=== PATIENT | male | born 2000 | race Caucasian/White ===

== ENCOUNTER 2018-10-05 21:53 | Emergency (ER) | payer OTHER ==
[2018-10-05] MEDS ORDERED: ONDANSETRON 4 MG/2 ML VIAL ONE (22:09)
[2018-10-05] MEDS ORDERED: ONDANSETRON 4 MG/2 ML VIAL IVP ONE (22:13)
[2018-10-05] MEDS ORDERED: NS 1,000 ML IV ONE (22:14)
--- NOTE | 2018-10-05 22:15 | EDPHY ---
H & P Stated Complaint: VOMIT, COUGH, CP Time Seen by Provider: 10/05/18 22:02 HPI/ROS: Chief Complaint: Vomiting, dehydration, chest pain HPI: 18-year-old male states that he was out drinking last night. Had about 5- 6 beers. He has had URI symptoms for about the last week bringing up yellowish sputum. This morning he woke up feeling general malaise, nausea. He has vomited multiple times. He has been unable to keep any fluids down. He has had some body aches. After vomiting he did have some central chest pain which has since improved. No blood in his vomit. No dark tarry stools or blood in his stool. No fevers or chills. Does have mild cough. No shortness of breath. ROS: 10 systems were reviewed and were negative except those elements noted in the HPI. PMH: Denies Social History: Occasional E cigarettes, occasional alcohol alcohol, occasional marijuana Family History: non-contributory Physical Exam: Gen: Awake, Alert, No Distress HEENT: Nose: no rhinorrhea Eyes: PERRLA, EOMI Mouth: Moist mucosa Neck: Supple, no JVD Chest: nontender, lungs clear to auscultation Heart: S1, S2 normal, no murmur Abd: Soft, non-tender, no guarding Back: no CVA tenderness, no midline tenderness Ext: no edema, non-tender Skin: no rash Neuro: CN II-XII intact, Sensation grossly intact, Strength 5/5 in bilateral upper and lower extremities - Personal History Current Tetanus Diphtheria and Acellular Pertussis (TDAP): Yes - Medical/Surgical History Hx Asthma: No Hx Chronic Respiratory Disease: No Hx Diabetes: No Hx Cardiac Disease: No Hx Renal Disease: No Hx Cirrhosis: No Hx Alcoholism: No Hx HIV/AIDS: No Hx Splenectomy or Spleen Trauma: No Other PMH: DENIES - Social History Smoking Status: Current some day smoker Constitutional: Initial Vital Signs Temperature (C) 37.0 C 10/05/18 21:57 Heart Rate 104 H 10/05/18 21:57 Respiratory Rate 16 10/05/18 21:57 Blood Pressure 125/63 H 10/05/18 21:57 O2 Sat (%) 97 10/05/18 21:57 O2 Delivery Mode Room Air Allergies/Adverse Reactions: No Known Allergies Allergy (Unverified 10/05/18 21:57) Home Medications: Medication Instructions Recorded NK [No Known Home Meds] 10/05/18 Medical Decision Making ED Course/Re-evaluation: Patient is improved after IV fluids and ondansetron. He is tolerating p.o.. Vital signs are normal. He is very well in appearance. Plan will be for discharge and follow up at [facility], return for any concerns. - Data Points Medications Given: Discontinued Medications Sodium Chloride (Ns) 1,000 mls @ 0 mls/hr IV EDNOW ONE; Wide Open PRN Reason: Protocol Stop: 10/05/18 22:15 Last Admin: 10/05/18 22:15 Dose: 1,000 mls Ondansetron HCl (Zofran) 4 mg IVP EDNOW ONE Stop: 10/05/18 22:14 Last Admin: 10/05/18 22:16 Dose: 4 mg Departure - Departure Disposition: Home, Routine, Self-Care Clinical Impression: Nausea & vomiting, Dehydration Condition: Good Instructions: Acute Nausea and Vomiting (ED) Additional Instructions: Make sure you drink plenty of clear fluids. Avoid dairy, caffeine, and alcohol. Take ibuprofen, 600 mg every 8 hr. You may alternate with acetaminophen, 1000 mg every 8 hr. Follow up with [facility] in 2-3 days if symptoms are not improving. Referrals: NONE *PRIMARY CARE P,. [Primary Care Provider] - As per Instructions [facility] [Clinic] - As per Instructions
[2018-10-06 00:03] VITALS: BP 122/74
== END 2018-10-06 00:03 | disposition home or self-care (01) ==
DX: R11.2 Nausea with vomiting, unspecified (principal); E86.0 Dehydration; R53.81 Other malaise
CPT/HCPCS: 96374; J2405